=== PATIENT | female | born 1980 | race Caucasian/White ===

== ENCOUNTER 2016-10-07 16:25 | Emergency (ER) | payer MEDICAID ==
[2016-10-07 16:38] VITALS: RESP 18
[2016-10-07] MEDS ORDERED: Sodium Chloride 0.9% 1,000 ML IV ONE (17:01)
--- NOTE | 2016-10-07 17:04 | C.PDOC ---
History Of Present Illness 36 yr old female with PMHx of gastritis, presents to the ER with complaints of abdominal pain for the past few weeks. Patient states the pain is worse on the side and left flank and left adenxa.. Patient denies fever, chest pain, SOB, nausea, vomiting, diarrhea, constipation, dysuria, incontinence, weakness or numbness. Time Seen by Provider: 10/07/16 16:54 Chief Complaint (Nursing): Abdominal Pain History Per: Patient History/Exam Limitations: no limitations Onset/Duration Of Symptoms: Days (Few weeks) Current Symptoms Are (Timing): Still Present Past Medical History Reviewed: Historical Data, Nursing Documentation, Vital Signs Vital Signs: Last Vital Signs Temp 98.4 F 10/07/16 21:16 Pulse 81 10/07/16 21:16 Resp 18 10/07/16 21:16 BP 121/81 10/07/16 21:16 Pulse Ox 99 10/07/16 21:28 - Medical History PMH: Back Problems Surgical History: Appendectomy (2009) Family History: States: No Known Family Hx - Social History Hx Alcohol Use: No Hx Substance Use: No - Immunization History Hx Tetanus Toxoid Vaccination: No Hx Influenza Vaccination: No Hx Pneumococcal Vaccination: No Review Of Systems Except As Marked, All Systems Reviewed And Found Negative. Constitutional: Negative for: Fever Cardiovascular: Negative for: Chest Pain Respiratory: Negative for: Shortness of Breath Gastrointestinal: Positive for: Abdominal Pain (Left sided ). Negative for: Nausea, Vomiting, Diarrhea, Constipation Genitourinary: Negative for: Dysuria, Incontinence Neurological: Negative for: Weakness, Numbness Physical Exam - Physical Exam Appears: Non-toxic, No Acute Distress Skin: Warm, Dry, No Rash Head: Atraumatic, Normacephalic Oral Mucosa: Moist Chest: Symmetrical, No Tenderness Cardiovascular: Rhythm Regular, No Murmur Respiratory: Normal Breath Sounds, No Rales, No Rhonchi, No Stridor, No Wheezing Gastrointestinal/Abdominal: Soft, Tenderness (Mild left sided tenderness. ), No Guarding, No Rebound Back: Normal Inspection, No CVA Tenderness Extremity: Normal ROM, No Swelling Neurological/Psych: Oriented x3, Normal Speech, Normal Motor ED Course And Treatment - Laboratory Results Result Diagrams: 10/07/16 17:24 10/07/16 17:24 O2 Sat by Pulse Oximetry: 99 - CT Scan/US CT abd/pel Other Rad Studies (CT/US): Read By Radiologist, Radiology Report Reviewed CT/US Interpretation: EXAM: CT Abdomen and Pelvis Without Intravenous Contrast. CLINICAL HISTORY: 36 years old, female; Pain; Abdominal pain; Localized; Left; Additional info: Left sided pain. TECHNIQUE: Axial computed tomography images of the abdomen and pelvis without intravenous contrast. This. CT exam was performed using one or more of the following dose reduction techniques: automated. exposure control, adjustment of the mA and/or kV according to patient size, and/or use of iterative. reconstruction technique. Coronal and sagittal reformatted images were created and reviewed. EXAM DATE/ TIME: Exam ordered 10/07/2016 5:39 PM. COMPARISON: CT - ABD PELVIS PO IV CONTRAST 08/19/2015 9:12:42 PM. FINDINGS: Lower thorax: There is a small hiatal hernia. ABDOMEN: Liver: Unremarkable. Gallbladder and bile ducts: Unremarkable. No calcified stones. No ductal dilation. Pancreas: Unremarkable. No ductal dilation. Spleen: Unremarkable. No splenomegaly. Adrenals: Unremarkable. No mass. Kidneys and ureters: Unremarkable. No obstructing stones. No hydronephrosis. Stomach and bowel: Surgical clips are noted at the base of the cecum. No obstruction. There is. mild stable mucosal thickening noted of the rectum. Appendix: The appendix is not seen as a separate structure.. PELVIS: Bladder: Unremarkable. No stones. Reproductive: Tubal ligation clips are noted in the pelvis. ABDOMEN and PELVIS: Intraperitoneal space: There is a trace amount of free fluid in the posterior cul-de-sac. No free air. Bones/joints: Degenerative changes are noted at the lumbosacral junction. There is calcification of. the annulus at L5-S1. No acute fracture. No dislocation. Soft tissues: There is a small left waldo-umbilical hernia containing fat. Vasculature: Unremarkable. No abdominal aortic aneurysm. Lymph nodes: Unremarkable. No enlarged lymph nodes. IMPRESSION: 1. Stable mild thickening noted of the rectal mucosa. No other findings to suggest colitis. Inflammatory changes noted previously involving the cecum have resolved. 2. Small hiatal hernia. 3. Small waldo-umbilical hernia containing fat. No change Transabd US Other Rad Studies (CT/US): Read By Radiologist, Radiology Report Reviewed CT/US Interpretation: EXAM: US Pelvis Complete, Transabdominal. US Pelvis, Transvaginal. CLINICAL HISTORY: 36 years old, female; Pain; Pelvic pain; Additional info: Left adexal pain. TECHNIQUE: Real-time transabdominal and transvaginal pelvic ultrasound (complete) with image documentation. Transvaginal imaging was used for better evaluation of the endometrium and adnexa. COMPARISON: No relevant prior studies available. FINDINGS: Uterus/ cervix: The uterus appears retroflexed measuring at least 8.4 x 4.7 x 4.4 cm.. The. endometrial stripe is not well seen. The ovaries are not seen separate structures. . Free fluid: No free fluid. Bladder: The bladder is incompletely distended. IMPRESSION: Incomplete bladder distention. The endometrial stripe and ovaries are not well seen. Transvaginal US Other Rad Studies (CT/US): Read By Radiologist, Radiology Report Reviewed CT/US Interpretation: CLINICAL HISTORY: 36 years old, female; Pain; Pelvic pain ; Additional info: Left adexal pain. TECHNIQUE: Real-time transvaginal pelvic ultrasound (complete) with image documentation. Transvaginal. imaging was used for better evaluation of the endometrium and adnexa. EXAM DATE/TIME: Exam ordered 10/07/2016 5:43 PM. COMPARISON: CT - ABD PELVIS PO IV CONTRAST 2015 9:12:42 PM. FINDINGS: Endovaginal ultrasound was performed for clearer delineation of the endometrium stripe and the. ovaries. Uterus/cervix: The uterus is retroverted and retroflexed measuring at least 8.1 x 5.1 x 5.2 cm. The. endometrium stripe measures 1.6 cm in thickness. There is a focal hyperdense lesion noted within. the endometrial canal measuring 1.6 x 1.1 x 1.4 cm. Faint vascularity is noted within the lesion on. color Doppler examination. Right ovary: The right ovary measures 2.7 x 1.9 x 2.4 cm and contains subcentimeter follicles. Blood. flow seen in the right ovary color Doppler examination. Left ovary: The left ovary measures 3.1 x 2.7 x 1.5 cm. Several subcentimeter follicles are seen in. the left ovary.There is a 1.7 cm follicle seen in the left ovary. Blood flow seen in the left ovary on color. Doppler examination. Free fluid: A small amount of free fluid is noted adjacent to the uterus. Bladder: Empty bladder which cannot be evaluated with this probe. IMPRESSION: 1. 1.7 cm follicle seen in the left ovary. This is considered within the range of normal for menstruating. female. 2. 1.6 cm echogenic mass noted within the endometrial canal. Differential diagnostic considerations. include blood clot or endometrial polyp as the most likely possibilities. This would be an unusual. appearance for a submucosal fibroid Medical Decision Making Medical Decision Making: r/o renal colic, pyleo, renal stone, cyst PLAN: * CBC * CMP * HCG * Urinalysis * Zofran IVP * Sodium Chloride IV * 700: pt later endorsed now with white dc vaginal. pelvic, purlent white d/c noted, no cmt, os closed, no bleeding, no external lesions. US/ct neg. no e/o of abscess. will treat for pid, pain improved. advise outpt f/u Disposition - Disposition Referrals: [facility] [Outside] [facility] [Outside] [facility] [Outside] Talib Norman [Staff Provider] - Ancelmo Bran MD [Staff Provider] - Disposition: HOSPITALIZED Disposition Time: 20:32 Condition: STABLE Additional Instructions: please follo wup with you r doctor/clinic and specialist. return to er with worsening symptoms or concerns. Prescriptions: Doxycycline Hyclate [Doryx] 100 mg PO BID #14 cap Instructions: Pelvic Inflammatory Disease (ED), Sexually Transmitted Diseases ( ED), Safe Sex (ED), Acute Abdominal Pain (ED), Flank Pain (ED) - Clinical Impression Clinical Impression: Abdominal pain, Flank pain, Pelvic inflammatory disease, Pelvic pain - Scribe Statement The provider has reviewed the documentation as recorded by the Twila Holland Provider Attestation: All medical record entries made by the Twila were at my direction and personally dictated by me. I have reviewed the chart and agree that the record accurately reflects my personal performance of the history, physical exam, medical decision making, and the department course for this patient. I have also personally directed, reviewed, and agree with the discharge instructions and disposition.
[2016-10-07 17:30] LABS: BASO # 0.1 K/uL (0.0-0.2); BASO % 0.7 % (0.0-2.0); EOS # 0.1 K/uL (0.0-0.7); EOS % 1.4 % (0.0-4.0); LYMPH # 3.4 K/uL (1.0-4.3); LYMPH % 31.5 % (20.0-40.0); MEAN CELL VOLUME 79.7 fL (81.0-99.0); MEAN CORPUSCULAR HEMOGLOBIN 26.2 pg (27.0-31.0); MEAN CORPUSCULAR HGB CONC 32.8 g/dL (33.0-37.0); MEAN PLATELET VOLUME 7.8 fL (7.2-11.7); MONO # 0.5 K/uL (0.0-0.8); MONO % 4.9 % (0.0-10.0); NEUT # 6.7 K/uL (1.8-7.0); NEUT % 61.5 % (50.0-75.0); RBC 4.58 Mil/uL (3.80-5.20); RED CELL DISTRIBUTION WIDTH 15.4 % (11.5-14.5); WHITE BLOOD COUNT 10.9 K/uL (4.8-10.8)
[2016-10-07 17:37] LABS: SQUAMOUS EPITHIAL 5 /hpf (0-5); URINE BACTERIA RARE (<OCC); URINE BILIRUBIN NEGATIVE (NEGATIVE); URINE BLOOD NEGATIVE (NEGATIVE); URINE CLARITY Clear (Clear); URINE COLOR Yellow (YELLOW); URINE GLUCOSE (UA) NORMAL (Normal); URINE LEUKOCYTE ESTERASE NEG Leu/uL (Negative); URINE NITRATE NEGATIVE (NEGATIVE); URINE PROTEIN NEGATIVE (NEGATIVE); URINE UROBILINOGEN NORMAL mg/dL (0.2-1.0)
[2016-10-07 17:38] LABS: HCG,QUALITATIVE URINE NEGATIVE (NEGATIVE)
[2016-10-07] MEDS ORDERED: Sodium Chloride 0.9% 1,000 ML ONE (17:39)
[2016-10-07 17:41] LABS: PROTHROMBIN TIME 11.3 SECONDS (9.7-12.2)
[2016-10-07 17:42] LABS: ALB/GLOB RATIO 1.4 (1.0-2.1); ALT/SGPT 20 U/L (9-52); AST/SGOT 16 U/L (14-36); BLOOD UREA NITROGEN 14 mg/dL (7-17); GFR AFRICAN-AMERICAN > 60; GFR NON-AFRICAN AMERICAN > 60
[2016-10-07 17:43] LABS: CALCIUM 8.7 mg/dl (8.6-10.4); LIPASE 99 U/L (23-300)
--- NOTE | 2016-10-07 18:57 | CT ---
EXAM: CT Abdomen and Pelvis Without Intravenous Contrast CLINICAL HISTORY: 36 years old, female; Pain; Abdominal pain; Localized; Left; Additional info: Left sided pain TECHNIQUE: Axial computed tomography images of the abdomen and pelvis without intravenous contrast. This CT exam was performed using one or more of the following dose reduction techniques: automated exposure control, adjustment of the mA and/or kV according to patient size, and/or use of iterative reconstruction technique. Coronal and sagittal reformatted images were created and reviewed. EXAM DATE/TIME: Exam ordered 10/07/2016 5:39 PM COMPARISON: CT - ABD PELVIS PO IV CONTRAST 08/19/2015 9:12:42 PM FINDINGS: Lower thorax: There is a small hiatal hernia ABDOMEN: Liver: Unremarkable. Gallbladder and bile ducts: Unremarkable. No calcified stones. No ductal dilation. Pancreas: Unremarkable. No ductal dilation. Spleen: Unremarkable. No splenomegaly. Adrenals: Unremarkable. No mass. Kidneys and ureters: Unremarkable. No obstructing stones. No hydronephrosis. Stomach and bowel: Surgical clips are noted at the base of the cecum. No obstruction. There is mild stable mucosal thickening noted of the rectum. Appendix: The appendix is not seen as a separate structure.. PELVIS: Bladder: Unremarkable. No stones. Reproductive: Tubal ligation clips are noted in the pelvis. ABDOMEN and PELVIS: Intraperitoneal space: There is a trace amount of free fluid in the posterior cul-de-sac. No free air. Bones/joints: Degenerative changes are noted at the lumbosacral junction. There is calcification of the annulus at L5-S1. No acute fracture. No dislocation. Soft tissues: There is a small left waldo-umbilical hernia containing fat. Vasculature: Unremarkable. No abdominal aortic aneurysm. Lymph nodes: Unremarkable. No enlarged lymph nodes. IMPRESSION: 1. Stable mild thickening noted of the rectal mucosa. No other findings to suggest colitis. Inflammatory changes noted previously involving the cecum have resolved. 2. Small hiatal hernia. 3. Small waldo-umbilical hernia containing fat. No change.
--- NOTE | 2016-10-07 20:06 | US ---
EXAM: US Pelvis Complete, Transabdominal US Pelvis, Transvaginal CLINICAL HISTORY: 36 years old, female; Pain; Pelvic pain; Additional info: Left adexal pain TECHNIQUE: Real-time transabdominal and transvaginal pelvic ultrasound (complete) with image documentation. Transvaginal imaging was used for better evaluation of the endometrium and adnexa. COMPARISON: No relevant prior studies available. FINDINGS: Uterus/cervix: The uterus appears retroflexed measuring at least 8.4 x 4.7 x 4.4 cm.. The endometrial stripe is not well seen. The ovaries are not seen separate structures. . Free fluid: No free fluid. Bladder: The bladder is incompletely distended. IMPRESSION: Incomplete bladder distention. The endometrial stripe and ovaries are not well seen. EXAM: US Pelvis, Transvaginal CLINICAL HISTORY: 36 years old, female; Pain; Pelvic pain; Additional info: Left adexal pain TECHNIQUE: Real-time transvaginal pelvic ultrasound (complete) with image documentation. Transvaginal imaging was used for better evaluation of the endometrium and adnexa. EXAM DATE/TIME: Exam ordered 10/07/2016 5:43 PM COMPARISON: CT - ABD PELVIS PO IV CONTRAST 08/19/2015 9:12:42 PM FINDINGS: Endovaginal ultrasound was performed for clearer delineation of the endometrium stripe and the ovaries Uterus/cervix: The uterus is retroverted and retroflexed measuring at least 8.1 x 5.1 x 5.2 cm. The endometrium stripe measures 1.6 cm in thickness. There is a focal hyperdense lesion noted within the endometrial canal measuring 1.6 x 1.1 x 1.4 cm. Faint vascularity is noted within the lesion on color Doppler examination. Right ovary: The right ovary measures 2.7 x 1.9 x 2.4 cm and contains subcentimeter follicles. Blood flow seen in the right ovary color Doppler examination. Left ovary: The left ovary measures 3.1 x 2.7 x 1.5 cm. Several subcentimeter follicles are seen in the left ovary.There is a 1.7 cm follicle seen in the left ovary. Blood flow seen in the left ovary on color Doppler examination Free fluid: A small amount of free fluid is noted adjacent to the uterus. Bladder: Empty bladder which cannot be evaluated with this probe. IMPRESSION: 1. 1.7 cm follicle seen in the left ovary. This is considered within the range of normal for menstruating female. 2. 1.6 cm echogenic mass noted within the endometrial canal. Differential diagnostic considerations include blood clot or endometrial polyp as the most likely possibilities. This would be an unusual appearance for a submucosal fibroid
[2016-10-07] MEDS ORDERED: cefTRIAXone (Rocephin) 250 mg Inj IM STA (20:28)
[2016-10-07 21:17] VITALS: BP 121/81; PULSE 81; TEMP 98.4
[2016-10-07 21:28] VITALS: O2SAT 99
== END 2016-10-07 21:17 | disposition short-term general hospital (02) ==
LOC: C.ER 16:25
DX: N73.9 Female pelvic inflammatory disease, unspecified (principal); R10.9 Unspecified abdominal pain; R10.2 Pelvic and perineal pain
CPT/HCPCS: 74176; 76830; 76856; 80053; 81001; 83690; 84703; 85025; 85610; 85730; 87491; 87591; 96361; 96372; 96374; 96375; 99285; J0696; J1885; J2405; J7040

== ENCOUNTER 2016-12-19 23:23 | Emergency (ER) | payer MEDICAID ==
[2016-12-20 00:32] VITALS: TEMP 98.6; O2SAT 98
--- NOTE | 2016-12-20 00:43 | C.PDOC ---
History Of Present Illness patient complains of llq abdominal discomfort, radiating down the back of her left leg. No dysuria, no f/c/n/v. pain , occasionally shoots down the left leg Time Seen by Provider: 12/20/16 00:43 Chief Complaint (Nursing): Abdominal Pain History Per: Patient History/Exam Limitations: no limitations Onset/Duration Of Symptoms: Days Current Symptoms Are (Timing): Still Present Context: Other Severity: Mild Pain Scale Rating Of: 3 Location Of Pain/Discomfort: LLQ Radiation Of Pain To:: Leg Quality Of Discomfort: Dull, Aching Associated Symptoms: denies: Fever, Chills, Nausea, Vomiting Exacerbating Factors: Movement Alleviating Factors: None Last Bowel Movement: Yesterday Recent travel outside of the [place]: No Additional History Per: Family Past Medical History Reviewed: Historical Data, Nursing Documentation, Vital Signs Vital Signs: Last Vital Signs Temp 98.6 F 12/20/16 00:26 Pulse 97 H 12/20/16 00:26 Resp 20 12/20/16 00:26 BP 130/87 12/20/16 00:26 Pulse Ox 98 12/20/16 00:43 - Medical History PMH: Back Problems Surgical History: No Surg Hx Family History: States: No Known Family Hx - Social History Hx Alcohol Use: No Hx Substance Use: No - Immunization History Hx Tetanus Toxoid Vaccination: No Hx Influenza Vaccination: No Hx Pneumococcal Vaccination: No Review Of Systems Constitutional: Negative for: Fever, Chills Cardiovascular: Negative for: Chest Pain Respiratory: Negative for: Shortness of Breath Gastrointestinal: Positive for: Abdominal Pain (llq). Negative for: Nausea, Vomiting Genitourinary: Negative for: Dysuria Musculoskeletal: Negative for: Back Pain Skin: Negative for: Rash Neurological: Negative for: Weakness Psych: Negative for: Anxiety Physical Exam - Physical Exam Appears: Non-toxic, No Acute Distress Skin: Warm, Dry Oral Mucosa: Moist Neck: Supple Chest: Symmetrical Cardiovascular: Rhythm Regular Respiratory: No Rales, No Rhonchi, No Wheezing Gastrointestinal/Abdominal: Soft, Tenderness (mild llq), No Distention, No Rebound Back: No CVA Tenderness, Straight Leg Raising (pain 35 degrees) Extremity: No Tenderness, No Calf Tenderness, No Deformity Extremity: Bilateral: Atraumatic, Normal Color And Temperature, Normal ROM Pulses: Left Dorsalis Pedis: Normal, Right Dorsalis Pedis: Normal Neurological/Psych: Oriented x3, Normal Speech, Normal Cognition Gait: Steady ED Course And Treatment O2 Sat by Pulse Oximetry: 98 Pulse Ox Interpretation: Normal Progress Note: pt refuses any blood work . states she will try the naproxen and if no improvement in the next 36-48 hours, will return Disposition Counseled Patient/Family Regarding: Studies Performed, Diagnosis, Need For Followup, Rx Given - Disposition Referrals: Lola Oakley MD [Medical Doctor] - Disposition: HOME/ ROUTINE Disposition Time: 00:43 Condition: FAIR Prescriptions: Naproxen [Naprosyn] 1 tab PO BID PRN #15 tab PRN Reason: Pain Instructions: Sciatica (ED), Back Exercises (ED) Forms: [employer] (Azeri) - Clinical Impression Clinical Impression: Sciatica
[2016-12-20 01:45] LABS: RBC URINE 2 /hpf (0-3); URINE BILIRUBIN NEGATIVE (NEGATIVE); URINE BLOOD NEGATIVE (NEGATIVE); URINE COLOR Yellow (YELLOW); URINE GLUCOSE (UA) NORMAL (Normal); URINE KETONE NEGATIVE (NEGATIVE); URINE LEUKOCYTE ESTERASE NEG Leu/uL (Negative); URINE PROTEIN NEGATIVE (NEGATIVE); URINE UROBILINOGEN NORMAL mg/dL (0.2-1.0); WBC URINE < 1 /hpf (0-5)
[2016-12-20 02:14] VITALS: BP 132/88; PULSE 86; RESP 16
== END 2016-12-20 02:14 | disposition home or self-care (01) ==
LOC: C.ER 23:23
DX: M54.32 Sciatica, left side (principal)
CPT/HCPCS: 81001; 84703; 96372; 99284; J1885

== ENCOUNTER 2018-07-18 07:05 | Day surgery (SDC) | payer MEDICAID ==
[2018-07-17 11:48] VITALS: BMI 25.9
[2018-07-18] MEDS ORDERED: Lactated Ringer's 500 ML IV SCH (09:30)
[2018-07-18] MEDS ORDERED: Lactated Ringer's 500 ML IV ONE (09:39)
[2018-07-18] MEDS ORDERED: Midazolam 2 MG/2 ML VIAL ONE (09:42)
[2018-07-18] MEDS ORDERED: Propofol 10 mg/ml Inj (20 ML) ONE ×2 (09:42)
[2018-07-18 11:09] VITALS: BP 116/83; PULSE 93; RESP 20; TEMP 97.5; O2SAT 99
== END 2018-07-18 11:05 | disposition home or self-care (01) ==
LOC: C.ENDO 07:05
PROVIDERS: ATTEND Internal Medicine Gastroenterology
DX: K29.30 Chronic superficial gastritis without bleeding (principal); K31.9 Disease of stomach and duodenum, unspecified; K44.9 Diaphragmatic hernia without obstruction or gangrene; K64.0 First degree hemorrhoids; K52.9 Noninfective gastroenteritis and colitis, unspecified
CPT/HCPCS: 43239; 45380; 84703; 88305; 88313; 88342; J2250; J2704; J7120